=== PATIENT | male | born 1990 ===

== ENCOUNTER → 2019-04-12 07:27 | Day surgery (SDC) | payer OTHER ==
--- NOTE | 2019-04-07 12:01 | HP ---
CC: Dr. Bhanu Ratliff * PREOPERATIVE HISTORY AND PHYSICAL: DATE OF ADMISSION/SURGERY: This patient is scheduled for same day surgery admission by Dr. Rice on 04/12/19. DATE OF PREOPERATIVE HISTORY AND PHYSICAL EXAMINATION: 04/07/19 ATTENDING SURGEON: Dr. Omero Rice * (dictated by Christal Moseley NP) CHIEF COMPLAINT: Bilateral groin hernias. HISTORY OF PRESENT ILLNESS: The patient is a 28-year-old male recently evaluated by Dr. Rice for bilateral inguinal hernias. 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 He reports pain right greater than left. He denies any signs or symptoms to suggest incarceration or strangulation. He denies any dysuria and is having regular formed bowel movements and denies any nausea or vomiting. Dr. Rice examined the patient and notes bilateral small bulges consistent with inguinal hernias that are easily reducible. Dr. Rice reviewed the findings with the patient and recommended laparoscopic bilateral inguinal hernia repair with mesh as a same day surgery procedure under general anesthesia. Dr. Rice reviewed the relevant risks, benefits, and alternatives and today I reviewed the typical postoperative care and recovery. The patient wishes to proceed and has had a chance to ask questions and stated that he understands the information and is satisfied with the answers given to his questions. He will sign surgical consent on the day of surgery. PAST MEDICAL HISTORY: Generally healthy. PAST SURGICAL HISTORY: None. MEDICATIONS: 1. Multivitamin 1 p.o. daily. 2. Lexapro 5 mg p.o. daily. 3. Propranolol 10 mg p.o. up to 20 mg daily as needed for anxiety or migraines. He may decide to discontinue that medication preoperatively. ALLERGIES: No known drug allergies. FAMILY HISTORY: No known anesthesia complications, bleeding tendencies or clotting disorders. Mother has a history of hypertension. 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 REVIEW OF SYSTEMS: Constitutional: No fevers, chills, excessive fatigue, or weight loss. General: No history of deep vein thrombosis or pulmonary embolism. No easy bruising or bleeding. No history of blood transfusions. He has received local anesthetic without any unusual complications. Endocrine: No diabetes or thyroid disease. Respiratory: No dyspnea on exertion or chronic cough. Cardiovascular: No anginal chest pain or palpitations; he stated that after starting propranolol, he had an odd sensation in his chest and plans to discontinue propranolol preoperatively. Gastrointestinal: No nausea, vomiting , diarrhea, GI bleeding or constipation or change in bowel habits. Genitourinary: No dysuria. Musculoskeletal: Normal strength and tone. Integumentary: No chronic rashes or skin changes. Neurologic: No headache or blurred vision. He does have a history of migraine headaches but none recently. Psychiatric: He does suffer from anxiety at times. No report of depression or insomnia. PHYSICAL EXAMINATION GENERAL SURVEY: The patient is a 28-year-old male, well developed, well nourished, in no acute distress. VITAL SIGNS: Height 67 inches, weight 137 pounds, body mass index 21.5. Blood pressure 114/80, pulse 64 and regular, respiratory rate 16, temperature 97.6 tympanic. HEENT: Benign. NECK: Supple. No cervical lymphadenopathy. LUNGS: Breath sounds bilaterally clear and equal. HEART: Regular rate and rhythm. No murmurs or rubs appreciated. ABDOMEN: Active bowel sounds, soft, nondistended, nontender throughout. Inguinal exam by Dr. Rice revealed bilateral small bulges that area easily reducible and minimally tender; testicles are normally descended without lesion. BACK: No CVA tenderness. RECTAL: Exam deferred. EXTREMITIES: Warm without edema or skin ulcerations. NEUROLOGIC: Alert and oriented x3. PSYCHIATRIC: Appropriate mood and cooperative. SKIN: Warm, dry, intact. IMPRESSION: Bilateral inguinal hernias. PLAN: Same day surgery admission to Dr. Rice's service on 04/12/19 for laparoscopic bilateral inguinal hernia repair with mesh. CADY MOSELEY NP [id number]/[facility] #: [id number] [facility] HOSPITALAna
[~2019-04-12 07:27] MED LIST: Acetaminophen IV 1GM/100ML * 1,000 MG/100 ML VIAL IVPB ONE; Acetaminophen IV 1GM/100ML * 100 ML ONE; Buffered Lidocaine 1% SYRIN* 1 ML/SYRINGE INTRADERM ONE; Bupivacaine 0.25% EPI 200,000* 30 ML SDV ONE; Dexamethasone IV* 4 MG/ML 1 ML (4 MG) ONE; Esmolol* 10 MG/ML 10 ML (100 mg) ONE; Glycopyrrolate IV* 0.2 MG/ML 1 ML VIAL ONE; Ketorolac INJ* 30 MG/ML 1 ML VIAL IV PRN; Ketorolac INJ* 30 MG/ML 1 ML VIAL ONE; Lactated Ringers 1000 ML Bag* 1,000 ML IV SCH; Lidocaine 2% PF * 5 ML VIAL ONE; Midazolam* 1 MG/ML 2 ML VIAL (2 MG) ONE; Naloxone* 0.4 MG/ML 1 ML VIAL IV PRN; Propofol* 10 MG/ML 20 ML BTL ONE; Rocuronium* 10 MG/ML VIAL ONE; Sodium Citrate/Citric Acid* 15 ML UDC ONE; Sodium Citrate/Citric Acid* 15 ML UDC PO ONE; ceFAZolin 2 GM in NS PREMIX(*) 2 GM/100 ML BAG IVPB ONE; fentaNYL* 50 MCG/ML 2 ML VIAL (100 MCG VIAL) ONE; oxyCODONE/Acetamin 5/325 MG* TAB ONE
--- NOTE | 2019-04-12 13:58 | BRIEFOPN ---
Brief Operative/Procedure Note - Operation Details Pre-Op Diagnosis: bilateral inguinal hernias Post-Op Diagnosis: same Procedures: laparoscopic repair bilateral inguinal hernias w/ mesh Surgeon(s)/Proceduralists: Dwayne. Assist: TEMITOPE Archer Anesthesia: GET Estimated Blood Loss: < 20 ml; IVF: 2000 ml RL Findings: as above Specimen(s)/Culture(s) Description: none Complications: none
[2019-04-12] MEDS: fentaNYL* 50 MCG/ML 2 ML VIAL (100 MCG VIAL) IV PRN ×4 (14:15→15:09)
[2019-04-12 18:54] VITALS: BP 115/73
--- NOTE | 2019-04-12 21:22 | OP ---
CC: PCP; [facility]. * DATE OF OPERATION: 04/12/19 - SDS DATE OF : 89 SURGEON: Omero Rice MD AUTOMATIC THREAD WINDER: TEMITOPE Spicer ANESTHESIOLOGIST: Dr. Martinez. ANESTHESIA: General. PRE-OP DIAGNOSIS: Bilateral inguinal hernias. POST-OP DIAGNOSIS: Bilateral inguinal hernias. OPERATIVE PROCEDURE: Laparoscopic bilateral inguinal hernia repairs with mesh. ESTIMATED BLOOD LOSS: Minimal. FLUIDS: 2 L of crystalloid fluid given. COMPLICATIONS: None. DESCRIPTION OF PROCEDURE: The patient was identified in the preoperative area. He was marked, brought to the operating room and placed on the operating table in supine position. Preoperative antibiotics were given. Sequential devices were placed on bilateral lower extremities. General anesthesia was induced. Rivera catheter was inserted. The patient's abdomen was clipped of hair, prepped and draped in standard surgical fashion. A time-out was performed. An infraumbilical incision was made. This was deepened down to the rectus fascia on the right, which was incised and the rectal pillar retracted laterally and blunt finger dissection was carried out in the preperitoneal plane. A 12-mm blunt trocar was inserted and this space was allowed to insufflate to a pressure of 12 mmHg. The patient tolerated the insufflation well. Blunt camera dissection was then carried out, freeing up the loose areolar tissue to see the preperitoneal plane better and two 5-mm trocars were then placed in the lower midline. Attention was turned towards the left. Rafal's ligament on left and right were cleared off. There was no evidence of a direct hernia. The epigastric vessels on the left were maintained anteriorly and the space of Bogros was opened up laterally, freeing up this tissue and identifying the peritoneum as it extended towards the inguinal canal. The peritoneum was dissected free off of the spermatic structures very far posteriorly and lipoma of the cord was reduced, this was small. Attention was turned towards the right side. The Rafal's ligament had already been cleared up. There was no evidence of a direct hernia. Bogros space was cleaned and the peritoneum extending towards the indirect space was bluntly freed up from this site. Opening in the peritoneum was made and a 5-mm clip auto self service station attendant was used to close this. Lipoma of the cord was reduced and then we placed meshes in the appropriate fashion utilizing 2 large Bard 3DMax meshes, placed in the right side first, tacking the Rafal's ligament and also laterally. The left side was then placed and there was good overlap. It covered the full myopectineal orifice as well on this side and then hemostasis was excellent and we allowed the preperitoneal plane to collapse. Trocars were removed under direct vision. Attention was then turned towards the umbilicus. The posterior fascia was incised as was the peritoneum and entry into the abdominal cavity was made bluntly and the blunt trocar was inserted and the abdomen was allowed to insufflate to a pressure of 12 mmHg. Review of the abdomen showed no fluid. Normal appearing bowel. Placing the patient in Trendelenburg, we could see that the meshes were placed appropriately without any wrinkling. There was an opening in the peritoneum on the right that had not been closed with a single clip. For this, two 5-mm trocars were inserted and a clip auto self service station attendant was was overlying the mesh. The mesh showed no wrinkling and was in the appropriate coverage. We then allowed the abdomen to collapse. Trocars were removed under direct vision. Anterior fascia was reapproximated with a 0 Vicryl suture and all skin incisions were reapproximated with 4-0 Monocryl subcuticular suture followed by Steri-Strips and sterile dressing. The patient tolerated the procedure well, his Rivera catheter was removed, he was woken up and transferred to the PACU in stable condition. [id number]/[facility] #: [id number] ROB
== END | disposition home or self-care (01) ==
LOC: OR 07:27
PROVIDERS: ATTEND Surgery
DX: K40.20 Bilateral inguinal hernia, without obstruction or gangrene, not specified as recurrent (principal); Z87.891 Personal history of nicotine dependence; F41.8 Other specified anxiety disorders
CPT/HCPCS: A9270-GY; C1781; J0690; J1100; J1885; J2250; J2704; J3010